=== PATIENT | female | born 1950 | race Two or more races ===

== ENCOUNTER 2020-05-11 15:14 | Inpatient (IN) | payer MEDICAID, OTHER ==
[~2020-05-11] VITALS: Ht 162.6 cm; Wt 90.6 kg
[2020-05-11] MEDS ORDERED: ACETAMINOPHEN 500 MG TAB PO ONE (17:15)
[2020-05-11 18:16] LABS: Basophils # (auto) 0 10 ^3/uL (0-0.2); Basophils % (auto) 0.4 % (0.0-2.0); Eosinophils # (auto) 0 10 ^3/uL (0-0.8); Eosinophils % (auto) 0.5 % (0.0-7.0); Hematocrit 39.1 % (36.0-46.0); Hemoglobin 12.8 g/dL (12.2-16.2); Lymphocytes # (auto) 0.9 10 ^3/uL (0.4-5.4); Lymphocytes % (auto) 21.5 % (10.0-50.0); Mean Corpuscular Hgb Conc. 32.7 g/dL (32.0-36.0); Mean Corpuscular Volume 88.7 fL (80.0-100.0); Monocytes # (auto) 0.5 10 ^3/uL (0-1.3); Neutrophils # (auto) 2.9 10 ^3/uL (1.6-8.6); Neutrophils % (auto) 66.6 % (37.0-80.0); Nucleated Red Blood Cells % 0.1 %; Platelet Count (auto) 222 10^3/uL (140-450); Red Blood Cells 4.41 10^6/uL (4.0-5.20); Red Cell Distribution Width 14.4 % (11.8-14.3); White Blood Cell 4.4 10^3/uL (4.4-10.8)
[2020-05-11 18:32] LABS: Albumin 3.1 g/dL (3.4-5.0); Anion Gap 7 (5-15); Blood Urea Nitrogen 23 mg/dL (7-18); Calcium 8.1 mg/dL (8.5-10.1); Carbon Dioxide 27 mmol/L (21-32); Chloride 104 mmol/L (98-107); Glucose 241 mg/dL (74-106); Magnesium 2.1 mg/dL (1.6-2.6); Potassium 3.4 mmol/L (3.5-5.1); Sodium 138 mmol/L (136-145)
[2020-05-11 18:40] LABS: Alanine Aminotransferase 28 U/L (13-56); Alkaline Phosphatase 115 U/L (45-117); Aspartate Aminotransferase 25 U/L (15-37); BUN/Creatinine Ratio 31.1; Bilirubin, Total 0.3 mg/dL (0.2-1.0); CRP High Sensitivity 4.19 mg/dL (< 0.3); GFR African American 100 mL/min; GFR Non-African American 83 mL/min; Lactate Dehydrogenase 231 U/L (84-246); Total Protein 6.9 g/dL (6.4-8.2)
[2020-05-11] MEDS ORDERED: ASCORBIC ACID 500 MG TAB PO ONE (19:45)
[2020-05-11] MEDS ORDERED: PANTOPRAZOLE 40 MG/10 ML VIAL INJ IV ONE (19:45)
[2020-05-11] MEDS ORDERED: AZITHROMYCIN 500MG/ 250ML 250 ML IV ONE (19:45)
[2020-05-11] MEDS ORDERED: ZINC SULFATE 220mg CAP or TAB PO ONE (19:45)
[2020-05-11] MEDS ORDERED: methylPREDNISolone SOD SUCC 125 MG/2 ML VL IV ONE (19:45)
[2020-05-11] MEDS ORDERED: ENOXAPARIN SOD 100 MG/1 ML SYRINGE SC ONE (19:45)
[2020-05-11] MEDS ORDERED: MORPHINE SULF INJ 2 MG/ML SYRINGE 1ML IV PRN (21:00)
[2020-05-11] MEDS ORDERED: ACETAMINOPHEN 325 MG TAB PO PRN (21:00)
[2020-05-11] MEDS ORDERED: DEXTROSE (50%) 50ML SYRG IV PRN (21:00)
[2020-05-11] MEDS ORDERED: NITROGLYCERIN 0.4 MG SL TAB SL PRN (21:00)
[2020-05-11 21:21] LABS: Urine Bacteria NONE SEEN /hpf (None Seen); Urine Blood Negative /uL (Negative); Urine Mucus FEW (None Seen); Urine Specific Gravity 1.025 (1.001-1.035); Urine WBC 1 /hpf (0 - 5)
[2020-05-11] MEDS: DOXYCYCLINE 100MG/250ML 250 ML IV SCH (22:15)
[2020-05-11] MEDS: ATORVASTATIN 20 MG TAB PO SCH (22:45)
[2020-05-11] MEDS: FAMOTIDINE 20 MG TAB PO SCH (22:45)
[2020-05-12] VITALS (7 sets, daily range): BP systolic 101–130; BP diastolic 55–84
--- NOTE | 2020-05-12 00:03 | NUR ---
Telemetry admit from ER JEWEL FRAIRE admitted to Telemetry unit after SBAR received. Patient oriented to HERRERA MARES RN primary RN, unit, room, bed, and unit policies regarding patient care and visiting hours. Patient now on continuous telemetry monitoring, tele box # 14 and telemetry reading on arrival to unit is Sinus Rhythm at 62BPM. Patient placed on bedside oxygen, weighed by bedscale and encouraged to call if they need something. All questions and concerns addressed, patient verbalized understanding. Patient is alert and oriented, dominican speaking only, on 2LNC saturating at 98%, no distress noted and patient denies pain at this time. 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 Patient is limited assist to the toilet. Bed placed in lowest position, bed alarm turned on and call light within reach.
[2020-05-12] MEDS: InsuLIN REG 1unit/0.01ml Soln (100units/ml) SC SCH ×5 (05:16→22:35)
[2020-05-12] MEDS ORDERED: GLIP5TAB12 PO (05:53)
[2020-05-12] MEDS ORDERED: ATOR10TA52 PO (05:53)
[2020-05-12] MEDS ORDERED: METF-370 PO (05:53)
[2020-05-12] MEDS ORDERED: LOSA25TA38 PO (05:53)
[2020-05-12] MEDS: ACCU-CHEK COMFORT CURVE STRIP VI SCH ×5 (06:00→22:00)
[2020-05-12 07:43] LABS: Basophils # (auto) 0 10 ^3/uL (0-0.2); Basophils % (auto) 0.4 % (0.0-2.0); Eosinophils # (auto) 0 10 ^3/uL (0-0.8); Hemoglobin 13.2 g/dL (12.2-16.2); Lymphocytes # (auto) 0.6 10 ^3/uL (0.4-5.4); Lymphocytes % (auto) 19.5 % (10.0-50.0); Mean Corpuscular Hemoglobin 29.1 pg (28.0-32.0); Mean Corpuscular Hgb Conc. 32.9 g/dL (32.0-36.0); Mean Corpuscular Volume 88.6 fL (80.0-100.0); Monocytes # (auto) 0.1 10 ^3/uL (0-1.3); Monocytes % (auto) 3.6 % (0.0-12.0); Neutrophils # (auto) 2.5 10 ^3/uL (1.6-8.6); Neutrophils % (auto) 76.5 % (37.0-80.0); Nucleated Red Blood Cells % 0.1 %; Platelet Count (auto) 247 10^3/uL (140-450); Red Blood Cells 4.52 10^6/uL (4.0-5.20); Red Cell Distribution Width 14.1 % (11.8-14.3); White Blood Cell 3.3 10^3/uL (4.4-10.8)
[2020-05-12 08:04] LABS: Calcium 8.3 mg/dL (8.5-10.1); Potassium 3.6 mmol/L (3.5-5.1)
[2020-05-12 08:10] LABS: BUN/Creatinine Ratio 19.1; Bilirubin, Total 0.3 mg/dL (0.2-1.0)
[2020-05-12] MEDS: ZINC SULFATE 220mg CAP or TAB PO SCH (09:28)
[2020-05-12] MEDS: LOSARTAN POTASSIUM 25 MG TAB PO SCH (09:28)
[2020-05-12] MEDS: DOXYCYCLINE 100MG/250ML 250 ML IV SCH ×2 (09:28→22:10)
[2020-05-12] MEDS: CHOLECALCIFEROL (VITD3) 2,000 UNIT CAP PO SCH (09:29)
[2020-05-12] MEDS: ASCORBIC ACID 1,000 MG TAB PO SCH (09:29)
[2020-05-12] MEDS: FAMOTIDINE 20 MG TAB PO SCH ×2 (09:29→22:10)
[2020-05-12] MEDS ORDERED: ENOXAPARIN SOD 40 MG/0.4 ML SYRINGE SC SCH (10:00)
[2020-05-12] MEDS ORDERED: DexAMETHasone SOD PHOS 10MG/1ML VIAL INJ IV SCH (10:00)
[2020-05-12] MEDS ORDERED: DEXTROSE (50%) 50ML SYRG IV PRN (13:15)
[2020-05-12] MEDS ORDERED: POTASSIUM CHL 20 Meq TABLET PO ONE (13:15)
[2020-05-12] MEDS ORDERED: FUROSEMIDE 40 MG/4 ML VIAL IV ONE (13:15)
[2020-05-12] MEDS: ALBUTEROL SULF HFA 90MCG INH 200DOSE IN SCH ×2 (15:08→22:18)
[2020-05-12] MEDS: metFORMIN HYDROCHLORIDE 850 MG TAB PO SCH (18:09)
[2020-05-12] MEDS: glipiZIDE 5 MG TAB PO SCH (18:09)
--- NOTE | 2020-05-12 19:15 | NUR ---
Opening Shift Note Received report from josy Guzman RN. Assumed care of patient, awake and alert. No S/S of distress/SOB or pain. Instructed on POC and to call for assist PRN, will continue to monitor for changes Q1hr and PRN. Bed placed in lowest position, bed alarm turned on and call light within reach.
[2020-05-12] MEDS: ATORVASTATIN 20 MG TAB PO SCH (22:10)
[2020-05-12] MEDS: ENOXAPARIN SOD 40 MG/0.4 ML SYRINGE SC SCH (22:11)
[2020-05-12] MEDS: BUDESONIDE (INHALATION) 180 MCG IH IN SCH (22:17)
--- NOTE | 2020-05-13 01:30 | NUR ---
PATIENT REQUEST TO TRANSFER ROOM PATIENT IS COMPLAINING THAT SHE HAS NOT SLEEP SINCE LAST NIGHT RELATED TO A BED PATIENT'S TV IS ON ALL THE TIME AND THE BIG CEILING LIGHT IS ON AT ALL TIMES FOR THE A BED. PATIENT IS REQUESTING TO BE TRANSFER TO ANOTHER ROOM IF POSSIBLE. ASKED CHARGE NURSE AND [facility] PATIENT IS ASKING FOR SLEEPING MEDICATION AT THIS TIME. WILL GIVE MEDICATION ORDERED.
[2020-05-13] MEDS: TEMAZEPAM 15 MG CAP PO PRN ×2 (01:51→22:45)
--- NOTE | 2020-05-13 01:51 | NUR ---
GIVEN RESTORIL FOR SLEEP. WILL MONITOR
[2020-05-13 05:38] VITALS: BP 111/57
[2020-05-13] MEDS: ALBUTEROL SULF HFA 90MCG INH 200DOSE IN SCH ×3 (06:00→23:35)
--- NOTE | 2020-05-13 06:09 | NUR ---
ROUNDS Patient is resting in bed with eyes closed, n distress noted and patient denies pain. Patient is saturating at 98% on 2LNC.
[2020-05-13] MEDS: glipiZIDE 5 MG TAB PO SCH ×2 (06:42→17:39)
[2020-05-13] MEDS: ACCU-CHEK COMFORT CURVE STRIP VI SCH ×4 (06:42→22:40)
[2020-05-13] MEDS: InsuLIN REG 1unit/0.01ml Soln (100units/ml) SC SCH ×4 (06:50→22:41)
--- NOTE | 2020-05-13 07:00 | NUR ---
Respiratory note: MORNING TID ALBUTEROL MDI AND PULMICORT DPI NO GIVEN. PT WAS MOVED FROM ROOM 251 B TO CURRENT ROOM 245 A. MEDICATION NOT FOUND. WENT TO ROOM 251 b AND BOTH MEDICATIONS WERE FOUND IN THE TRASH. NOTIFIED PHARMACY TO REORDER AND MACHINIST HELPER.
[2020-05-13 08:00] VITALS: BP 127/71
[2020-05-13] MEDS: metFORMIN HYDROCHLORIDE 850 MG TAB PO SCH ×2 (09:39→17:39)
[2020-05-13] MEDS: DOXYCYCLINE 100MG/250ML 250 ML IV SCH ×2 (09:39→22:40)
[2020-05-13] MEDS: ZINC SULFATE 220mg CAP or TAB PO SCH (09:40)
[2020-05-13] MEDS: LOSARTAN POTASSIUM 25 MG TAB PO SCH (09:40)
[2020-05-13] MEDS: ENOXAPARIN SOD 40 MG/0.4 ML SYRINGE SC SCH ×2 (09:41→22:40)
[2020-05-13] MEDS: ASCORBIC ACID 1,000 MG TAB PO SCH (09:41)
[2020-05-13] MEDS: FAMOTIDINE 20 MG TAB PO SCH ×2 (09:41→22:40)
[2020-05-13] MEDS: CHOLECALCIFEROL (VITD3) 2,000 UNIT CAP PO SCH (09:41)
[2020-05-13] MEDS ORDERED: FUROSEMIDE 20 MG/2 ML VIAL IV SCH (10:00)
[2020-05-13] MEDS ORDERED: POTASSIUM CHL 20 Meq TABLET PO SCH (10:00)
[2020-05-13] MEDS: BUDESONIDE (INHALATION) 180 MCG IH IN SCH ×2 (10:00→23:35)
[2020-05-13 12:00] VITALS: BP 112/70
--- NOTE | 2020-05-13 14:32 | NUR ---
Nutrition Assessment Est energy needs [id number] kcal (18-20 kcal/kg BW 93.3kg) Est protein needs 55-71g (1-1.3g/kg IBW 54.5kg) Will reassess prn. Addendum: 05/13/20 at [address] Amended: Links added.
[2020-05-13 16:59] VITALS: BP 134/82
--- NOTE | 2020-05-13 19:46 | NUR ---
Opening Shift Note Assumed care of patient after receiving report. Patient is awake and alert with no S/S of distress/SOB or pain. Call light within reach, bed in lowest locked position x2 side rails, HOB semi fowlers. Instructed on POC and to call for assist PRN, will continue to monitor for changes Q1hr and PRN.
[2020-05-13 21:08] VITALS: BP 111/48
[2020-05-13] MEDS: FUROSEMIDE 20 MG/2 ML VIAL IV SCH (22:00)
[2020-05-13] MEDS: POTASSIUM CHL 20 Meq TABLET PO SCH (22:39)
[2020-05-13] MEDS: ATORVASTATIN 20 MG TAB PO SCH (22:40)
[2020-05-14 05:46] VITALS: BP 130/73
[2020-05-14 06:04] LABS: Basophils # (auto) 0 10 ^3/uL (0-0.2); Basophils % (auto) 0.4 % (0.0-2.0); Eosinophils # (auto) 0 10 ^3/uL (0-0.8); Eosinophils % (auto) 0.1 % (0.0-7.0); Hematocrit 38.9 % (36.0-46.0); Hemoglobin 13.2 g/dL (12.2-16.2); Lymphocytes # (auto) 1.5 10 ^3/uL (0.4-5.4); Lymphocytes % (auto) 18.2 % (10.0-50.0); Mean Corpuscular Hemoglobin 29.5 pg (28.0-32.0); Mean Corpuscular Hgb Conc. 33.9 g/dL (32.0-36.0); Mean Corpuscular Volume 87.1 fL (80.0-100.0); Monocytes # (auto) 0.7 10 ^3/uL (0-1.3); Neutrophils # (auto) 5.8 10 ^3/uL (1.6-8.6); Neutrophils % (auto) 72.3 % (37.0-80.0); Platelet Count (auto) 290 10^3/uL (140-450); Red Blood Cells 4.46 10^6/uL (4.0-5.20); Red Cell Distribution Width 13.9 % (11.8-14.3)
[2020-05-14] MEDS: ONDANSETRON HCL 4 MG/2 ML VIAL IV PRN ×2 (06:18→22:04)
[2020-05-14] MEDS: FUROSEMIDE 20 MG/2 ML VIAL IV SCH ×2 (06:18→17:11)
[2020-05-14] MEDS: ACCU-CHEK COMFORT CURVE STRIP VI SCH ×4 (06:18→21:58)
[2020-05-14] MEDS: glipiZIDE 5 MG TAB PO SCH ×2 (06:19→17:11)
[2020-05-14 06:20] LABS: Calcium 8.6 mg/dL (8.5-10.1); Potassium 3.3 mmol/L (3.5-5.1)
[2020-05-14] MEDS: InsuLIN REG 1unit/0.01ml Soln (100units/ml) SC SCH ×4 (06:20→22:45)
[2020-05-14 06:24] LABS: BUN/Creatinine Ratio 37.8; Bilirubin, Total 0.5 mg/dL (0.2-1.0); Total Protein 6.8 g/dL (6.4-8.2)
[2020-05-14] MEDS: ALBUTEROL SULF HFA 90MCG INH 200DOSE IN SCH ×3 (07:07→22:23)
[2020-05-14] MEDS: BUDESONIDE (INHALATION) 180 MCG IH IN SCH ×2 (07:07→22:23)
[2020-05-14] MEDS: DOXYCYCLINE 100MG/250ML 250 ML IV SCH ×2 (09:08→21:56)
[2020-05-14] MEDS: metFORMIN HYDROCHLORIDE 850 MG TAB PO SCH ×2 (09:08→17:11)
[2020-05-14] MEDS: ZINC SULFATE 220mg CAP or TAB PO SCH (09:09)
[2020-05-14] MEDS: POTASSIUM CHL 20 Meq TABLET PO SCH ×2 (09:09→21:57)
[2020-05-14] MEDS: ASCORBIC ACID 1,000 MG TAB PO SCH (09:09)
[2020-05-14] MEDS: FAMOTIDINE 20 MG TAB PO SCH (09:09)
[2020-05-14] MEDS: LOSARTAN POTASSIUM 25 MG TAB PO SCH (09:10)
[2020-05-14] MEDS: ENOXAPARIN SOD 40 MG/0.4 ML SYRINGE SC SCH ×2 (09:10→21:58)
[2020-05-14] MEDS: CHOLECALCIFEROL (VITD3) 2,000 UNIT CAP PO SCH (09:10)
--- NOTE | 2020-05-14 09:13 | NUR ---
PATIENT COMPLAINING OF "ANXIETY IN CHEST" REPORTS IT DOES NOT RADIATE AND SHE CAN "FEEL IT AT THE TIP OF HER STOMACH". EKG DONE AND SPOKE TO Saran WESTON OF NEW SYMPTOMS. STATED SHE WOULD ORDER STAT TROPONIN. WILL CONTINUE TO MONITOR FOR ANY CHANGES.
[2020-05-14 09:29] VITALS: BP 108/56
[2020-05-14] MEDS ORDERED: METF-371 PO (09:44)
[2020-05-14] MEDS ORDERED: ASCO10003 PO (09:44)
[2020-05-14] MEDS ORDERED: FURO40TA4 PO (09:44)
[2020-05-14] MEDS ORDERED: ALBUAER3 IN (09:44)
[2020-05-14] MEDS ORDERED: POTA-220 PO (09:44)
[2020-05-14] MEDS ORDERED: FAMO-12 PO (09:44)
[2020-05-14] MEDS ORDERED: METH4PAK PO (09:44)
[2020-05-14] MEDS ORDERED: CHOL1CAP47 PO (09:44)
[2020-05-14] MEDS ORDERED: POTASSIUM CHL 20 Meq TABLET PO ONE (09:45)
[2020-05-14 12:49] VITALS: BP 116/67
--- NOTE | 2020-05-14 14:55 | NUR ---
Saran WESTON AT BEDSIDE. Saran SEEN PATIENT URINE AND STATED IT IS OK DO NOT SEND.
[2020-05-14] MEDS ORDERED: PANT40TA2 PO (15:04)
[2020-05-14 17:00] VITALS: BP 127/54
[2020-05-14 17:31] LABS: Urine Bacteria NONE SEEN /hpf (None Seen); Urine Blood Negative /uL (Negative); Urine Mucus FEW (None Seen); Urine Specific Gravity 1.016 (1.001-1.035); Urine WBC <1 /hpf (0 - 5)
[2020-05-14] MEDS: PANTOPRAZOLE 40 MG TAB PO SCH (21:57)
[2020-05-14] MEDS: ATORVASTATIN 20 MG TAB PO SCH (21:57)
--- NOTE | 2020-05-14 22:28 | NUR ---
PT RETURNED FROM RESTROOM, SOB AND SPO2 NOTED AT 89%. PT PLACED ON 2L NC. WILL CONTINUE TO MONITOR.
[2020-05-14 23:11] VITALS: BP 101/48
--- NOTE | 2020-05-15 00:14 | NUR ---
IV insertion IV access obtained, via clean sterile technique by inserting 20 gauge catheter at right forearm after 1 attempt. IV secured properly. No trauma to site. Patient tolerated well.
--- NOTE | 2020-05-15 00:15 | NUR ---
IV removal IV to left wrist infiltrated. DC'd with clean sterile technique, catheter fully intact. Pressure dressing applied to site. Patient tolerated well.
[2020-05-15 05:28] LABS: Basophils # (auto) 0 10 ^3/uL (0-0.2); Basophils % (auto) 0.6 % (0.0-2.0); Eosinophils # (auto) 0 10 ^3/uL (0-0.8); Eosinophils % (auto) 0.2 % (0.0-7.0); Hematocrit 39.6 % (36.0-46.0); Hemoglobin 13.6 g/dL (12.2-16.2); Lymphocytes # (auto) 1.4 10 ^3/uL (0.4-5.4); Lymphocytes % (auto) 23.7 % (10.0-50.0); Mean Corpuscular Hemoglobin 29.9 pg (28.0-32.0); Mean Corpuscular Hgb Conc. 34.3 g/dL (32.0-36.0); Mean Corpuscular Volume 87.2 fL (80.0-100.0); Monocytes # (auto) 0.8 10 ^3/uL (0-1.3); Monocytes % (auto) 12.9 % (0.0-12.0); Neutrophils # (auto) 3.8 10 ^3/uL (1.6-8.6); Neutrophils % (auto) 62.6 % (37.0-80.0); Platelet Count (auto) 362 10^3/uL (140-450); Red Blood Cells 4.54 10^6/uL (4.0-5.20)
[2020-05-15 05:38] VITALS: BP 135/85
[2020-05-15 05:54] LABS: Albumin 3.1 g/dL (3.4-5.0); Calcium 9.5 mg/dL (8.5-10.1); Potassium 3.7 mmol/L (3.5-5.1)
[2020-05-15 05:57] LABS: BUN/Creatinine Ratio 36.8; Bilirubin, Total 0.5 mg/dL (0.2-1.0); Total Protein 7.1 g/dL (6.4-8.2)
[2020-05-15] MEDS: glipiZIDE 5 MG TAB PO SCH ×2 (06:24→18:44)
[2020-05-15] MEDS: FUROSEMIDE 20 MG/2 ML VIAL IV SCH ×2 (06:24→17:46)
[2020-05-15] MEDS: ACCU-CHEK COMFORT CURVE STRIP VI SCH ×4 (06:25→22:00)
[2020-05-15] MEDS: InsuLIN REG 1unit/0.01ml Soln (100units/ml) SC SCH ×4 (06:28→22:00)
[2020-05-15] MEDS: ALBUTEROL SULF HFA 90MCG INH 200DOSE IN SCH ×3 (06:55→22:48)
[2020-05-15] MEDS: BUDESONIDE (INHALATION) 180 MCG IH IN SCH ×2 (06:55→22:48)
[2020-05-15 08:00] VITALS: BP 135/85
--- NOTE | 2020-05-15 08:00 | NUR ---
ASSESSMENT NOTE PT IS ALERT ORIENTED X4, RESTING IN BED COMFORTABLY, NO DISTRESS NOTED, LARGE SOFT ABDOMEN NOTED, [place] SPEAKING, BUT ABLE TO VERBALIS HER DEMANDS CLEARLY, PAIN 0/10, CALL LIGHT WITHIN REACH
--- NOTE | 2020-05-15 08:35 | NUR ---
BREAKFAST PT GOT OUT OF BED SAT ON CHAIR TO EAT BREAKFAST AT BED SIDE, CONTINUE MONITORING PT
[2020-05-15 09:00] VITALS: BP 123/79
[2020-05-15] MEDS: DOXYCYCLINE 100MG/250ML 250 ML IV SCH ×2 (09:46→22:00)
[2020-05-15] MEDS: metFORMIN HYDROCHLORIDE 850 MG TAB PO SCH ×2 (09:46→18:43)
[2020-05-15] MEDS: ZINC SULFATE 220mg CAP or TAB PO SCH (09:46)
[2020-05-15] MEDS: LOSARTAN POTASSIUM 25 MG TAB PO SCH (09:47)
[2020-05-15] MEDS: ASCORBIC ACID 1,000 MG TAB PO SCH (09:47)
[2020-05-15] MEDS: CHOLECALCIFEROL (VITD3) 2,000 UNIT CAP PO SCH (09:47)
[2020-05-15] MEDS: POTASSIUM CHL 20 Meq TABLET PO SCH ×2 (09:47→22:00)
[2020-05-15] MEDS: PANTOPRAZOLE 40 MG TAB PO SCH ×2 (09:47→22:00)
[2020-05-15] MEDS: ENOXAPARIN SOD 40 MG/0.4 ML SYRINGE SC SCH ×2 (09:48→22:00)
--- NOTE | 2020-05-15 10:00 | NUR ---
PT AMBULATE TO BATHROOM NEEDED, NO DISTRESS NOTED, AND BACK TO BED
[2020-05-15 12:46] VITALS: BP 120/70
--- NOTE | 2020-05-15 14:55 | NUR ---
PAGE DR ALONSO TO MAKE HIM AWARE OF PT CALLED BACK, INFORM GIOVANNA THE TYRE RETREADER THAT HE WILL COME OVER AND SEE PATIENT
--- NOTE | 2020-05-15 15:00 | NUR ---
SATURATION IN ROOM AIR AMBULATED PT IN THE HALLWAYS 50 FEET X2, THEN BACK TO HER ROOM PT SAT AT 91 TO 92 % IN ROOM AIR DURING AMBULATION, PT SAT 95 % IN ROOM AIR WHEN SHE SIT DOWN
--- NOTE | 2020-05-15 15:30 | NUR ---
DR ALONSO AT BED SIDE FOLLOWING UP ON PT, SAID THAT WILL GOING TO KEEP PT ONE MORE DAY, AND FOLLOW UP TOMORROW
[2020-05-15] MEDS ORDERED: IODIXANOL 320MG/ML 100ML BTL IV ONE (16:10)
[2020-05-15 16:48] VITALS: BP 118/68
--- NOTE | 2020-05-15 17:20 | NUR ---
OUT TO RADIOLOGY FOR CHEST CT VIA WHEELCHAIR, NO DISTRESS NOTED
--- NOTE | 2020-05-15 17:45 | NUR ---
PT IS BACK FROM RADIOLOGY VISA WHEEL CHAIR, NO DISTRESS NOTED, SAT DOWN AT THE SIDE OF THE BED
--- NOTE | 2020-05-15 18:50 | NUR ---
PT CONTINUE STABLE, CONTINUE MONITORING
--- NOTE | 2020-05-15 19:20 | NUR ---
OPENING SHIFT NOTE Assumed care of patient who is A&O x4. Currently on 2L NC with no s/s of distress. reports pain to left rib area when standing up from a laying position,. Declines pain management options at this time. PIV in left forearm is intact and patent. Flushed with 10ml NS. Bed is in low locked position with side rails up x2. Call light is within reach and patient encouraged to call for assistance when needed. Will continue to monitor for changes PRN.
[2020-05-15 21:30] VITALS: BP 119/58
[2020-05-15] MEDS: ATORVASTATIN 20 MG TAB PO SCH (22:00)
--- NOTE | 2020-05-16 01:32 | NUR ---
IV removal IV to left forearm infiltrated. DC'd with clean sterile technique, catheter fully intact. Pressure dressing applied to site. Patient tolerated well.
--- NOTE | 2020-05-16 01:33 | NUR ---
IV insertion IV access obtained, via clean sterile technique by inserting 22 gauge catheter at right hand after 1 attempt. IV secured properly. No trauma to site. Patient tolerated well.
[2020-05-16] MEDS: ONDANSETRON HCL 4 MG/2 ML VIAL IV PRN ×2 (01:45→09:28)
[2020-05-16 03:35] VITALS: BP 119/58
[2020-05-16 05:00] VITALS: BP 108/67
[2020-05-16] MEDS: FUROSEMIDE 20 MG/2 ML VIAL IV SCH (05:58)
[2020-05-16] MEDS: InsuLIN REG 1unit/0.01ml Soln (100units/ml) SC SCH ×2 (05:58→11:52)
[2020-05-16] MEDS: glipiZIDE 5 MG TAB PO SCH (05:58)
[2020-05-16] MEDS: ACCU-CHEK COMFORT CURVE STRIP VI SCH ×2 (05:59→11:31)
[2020-05-16] MEDS: ALBUTEROL SULF HFA 90MCG INH 200DOSE IN SCH (06:57)
[2020-05-16] MEDS: BUDESONIDE (INHALATION) 180 MCG IH IN SCH (06:57)
[2020-05-16 08:00] VITALS: BP 108/67
--- NOTE | 2020-05-16 08:00 | NUR ---
ASSESSMENT NOTE PT IS ALERT ORIENTED X4, RESTING IN BED COMFORTABLY, NO DISTRESS NOTED, LARGE SOFT ABDOMEN NOTED, BULGARIAN SPEAKING, BUT ABLE TO VERBALIS HER DEMANDS CLEARLY, PAIN 0/10, CALL LIGHT WITHIN REACH PT IS LOOKING FORWARD TO GO HOME TODAY
[2020-05-16 08:18] VITALS: BP 119/58
--- NOTE | 2020-05-16 08:24 | NUR ---
BREAKFAST PT GOT OUT OF BED SAT ON CHAIR TO EAT BREAKFAST AT BED SIDE, ROOM AIR SAT AT 96%, NO DISTRESS NOTED
[2020-05-16] MEDS: metFORMIN HYDROCHLORIDE 850 MG TAB PO SCH (09:18)
[2020-05-16] MEDS: DOXYCYCLINE 100MG/250ML 250 ML IV SCH (09:18)
[2020-05-16] MEDS: ZINC SULFATE 220mg CAP or TAB PO SCH (09:18)
[2020-05-16] MEDS: LOSARTAN POTASSIUM 25 MG TAB PO SCH (09:18)
[2020-05-16] MEDS: ENOXAPARIN SOD 40 MG/0.4 ML SYRINGE SC SCH (09:19)
[2020-05-16] MEDS: PANTOPRAZOLE 40 MG TAB PO SCH (09:19)
[2020-05-16] MEDS: ASCORBIC ACID 1,000 MG TAB PO SCH (09:19)
[2020-05-16] MEDS: POTASSIUM CHL 20 Meq TABLET PO SCH (09:19)
--- NOTE | 2020-05-16 09:28 | NUR ---
NAUSEA PT IS COMPLAINING FROM / STATED < NAUSEA AND SIDE PAIN FROM LAYING DOWN IN BED >, PT CONTINUE SITTING ON CHAIR AT BED SIDE
[2020-05-16] MEDS: CHOLECALCIFEROL (VITD3) 2,000 UNIT CAP PO SCH (10:00)
--- NOTE | 2020-05-16 11:01 | NUR ---
ROOM AIR SATURATION 95 TO 97 %
--- NOTE | 2020-05-16 11:26 | NUR ---
X RAY REPORT OF 4 AM REPORT CONTINUE PENDING
[2020-05-16 12:06] VITALS: BP 119/58
--- NOTE | 2020-05-16 13:00 | NUR ---
CALLED PATIENT'S SON AGUILA WITH ALL DISCHARGE INSTRUCTION, THAT HIS M OM NEED TO FOLLOW UP WITH [facility] IN ONE WEEK, NEW PRESCRIPTION NEED TO BE PICKED UP FROM [facility] TO BE STARTED TOMORROW, [facility] TO BE STARTED WITH DINNER
--- NOTE | 2020-05-16 13:05 | NUR ---
DR WESTON AT BED SIDE WITH ALL DISCHARGE HOME INSTRUCTION WITH A SHREDDING SPECIALIST PUERTO RICAN TO [employer]ER[employer], PT STATED I CAN'T FINISH MY FOOD, MY STOMACH HURT > DR WESTON INFORM PT THAT SHE MIGHT HAS GASTRITIS FROM ALL THE MEDICATION WE GAVE HER, AND SHE ORDER PROTONIX FOR THE STOMACH, ALSO DR WESTON ADDED THAT THE REST OF THE SYMPTOMS ITS FROM COVID AND WILL IMPROVE WITH TIME
[2020-05-16 13:06] VITALS: BP 131/72
--- NOTE | 2020-05-16 13:49 | NUR ---
Discharge instructions given as ordered. Encourage to follow up with PMD as instructed. All questions and concerns addressed. Patient verbalized understanding. Medication reconciliation form completed and copy given to patient. IV removed with catheter intact, pressure dressing applied. Telemetry unit returned to ICU. Patient taken to vehicle via wheelchair with all personal belongings, accompanied by staff . No distress noted at time of departure.
[2020-05-16] MEDS ORDERED: ALBUTEROL SULF HFA 90MCG INH 200DOSE IN SCH (14:00)
== END 2020-05-16 15:00 | disposition home or self-care (01) | DRG 720 ==
LOC: ER 15:14 → TELE-EAST 15:15
PROVIDERS: ADMIT Nurse Practitioner; ATTEND Internal Medicine
DX: A41.89 Other specified sepsis (principal); U07.1 COVID-19; J96.01 Acute respiratory failure with hypoxia; J12.89 Other viral pneumonia; I10 Essential (primary) hypertension; E11.65 Type 2 diabetes mellitus with hyperglycemia; E44.1 Mild protein-calorie malnutrition; K21.9 Gastro-esophageal reflux disease without esophagitis; E66.01 Morbid (severe) obesity due to excess calories; E78.5 Hyperlipidemia, unspecified; Z90.49 Acquired absence of other specified parts of digestive tract; Z90.710 Acquired absence of both cervix and uterus; Z68.34 Body mass index [BMI] 34.0-34.9, adult
CPT/HCPCS: 36415; 36600; 71045; 71275; 80053; 81001; 82728; 82805; 82962; 83036; 83605; 83615; 83735; 83880; 84484; 85025; 85379; 86141; 87086; 87426; 94640; C9113; G0378; J1100; J1815; J2405; J3490; Q9967